=== PATIENT | female | born 1955 | race Caucasian/White ===

== ENCOUNTER 2022-03-28 20:06 | Emergency (ER) | payer MEDICARE ==
[~2022-03-28] VITALS: Ht 167.6 cm; Wt 72.7 kg
[2022-03-28 20:15] VITALS: TEMP 98.1
[2022-03-28 21:13] LABS: BASO # 0.1 K/mm3 (0.0-0.2); BASO % 0.7 % (0.0-2.0); EOS # 0.1 K/mm3 (0.0-0.7); EOS % 1.7 % (0.0-4.0); GRAN # 3.4 K/mm3 (1.4-6.5); GRAN % 49.6 % (42.2-75.2); HEMATOCRIT 43.2 % (37.0-47.0); HEMOGLOBIN 14.8 g/dl (12.5-16.0); LYMPH # 2.8 K/mm3 (1.2-3.4); LYMPH % 40.3 % (20.0-51.0); MEAN CELL VOLUME 92 fl (80.0-100.0); MEAN CORPUSCULAR HEMOGLOBIN 32 pg (27-31); MEAN CORPUSCULAR HGB CONC 34 g/dl (33.0-37.0); MEAN PLATELET VOLUME 10.3 fl (7.4-10.4); MONO # 0.5 K/mm3 (0.1-0.6); MONO % 7.6 % (1.7-9.3); PLATELET COUNT 207 K/mm3 (130-400); RED BLOOD COUNT 4.68 M/mm3 (4.10-5.30); REDCELL DISTRIBUTION WIDTH-CV 12.4 % (11.5-14.5)
[2022-03-28 21:32] LABS: BILIRUBIN,TOTAL 0.7 mg/dL (0.2-1.2); C-REACTIVE PROTEIN 0.07 mg/dL (0.00-0.50); CALCIUM 9.3 mg/dL (8.4-10.2); CREATININE, serum 1.09 mg/dL (0.57-1.11); POTASSIUM 4.1 mmol/L (3.5-4.5); TOTAL PROTEIN 8.4 gm/dL (6.2-8.1)
[2022-03-28 21:36] LABS: STREP SCREEN NEGATIVE
[2022-03-28] MEDS ORDERED: MOLNUPIRAVIR (200 MG PO (22:33)
[2022-03-28] MEDS ORDERED: NORVASC 5MG5 MG/TAB PO (22:33)
[2022-03-28 22:58] VITALS: BP 182/106; PULSE 77
== END 2022-03-28 22:58 | disposition home or self-care (01) ==
LOC: COL.ER 20:06
PROVIDERS: Emergency Medicine
DX: U07.1 COVID-19 (principal); I10 Essential (primary) hypertension; Z87.891 Personal history of nicotine dependence
CPT/HCPCS: J0360

== ENCOUNTER 2023-12-14 07:13 | Day surgery (SDC) | payer MEDICARE, MEDICAID ==
[~2023-12-14] VITALS: Ht 170.2 cm; Wt 103.2 kg
[~2023-12-14 07:13] MED LIST: BACTRIM DS 8001 TAB PO; CIPRO 500MG TA500 MG PO; FLAGYL500 MG PO; HALDOL 5MG T5 MG/TAB PO; INDERAL 20MG20 MG PO; LIPITOR 40MG TA40 MG PO; LR 1,000 ML IV SCH; MOLNUPIRAVIR (200 MG PO; NORCO 325 MG-51 TAB PO; NORVASC 5MG5 MG/TAB PO; Ondansetron 4 MG/2 ML VIAL IV PRN; PERCOCET 325 MG1 TA2 PO; PLAVIX 75MG TAB75 MG PO; PRINIVIL5 MG PO
[2023-12-14 08:09] VITALS: BP 139/98; PULSE 79; TEMP 97.4
[2023-12-14] MEDS ORDERED: Lidocaine PF 2% (20 MG/ML) 5 ML VIAL ONE (08:55)
[2023-12-14 09:15] VITALS: BP 150/94; PULSE 74
[2023-12-14 09:30] VITALS: BP 150/90; PULSE 79
--- NOTE | 2023-12-14 09:38 | NUR ---
0915 PATIENT RETURNS TO [facility] [place] [facility] VIA CART. PT AWAKE AND ALERT. RESPIRATIONS UNLABORED. AMBULATED TO RECLINER CHAIR WITH 2:1 SBA. PT DENIES NAUSEA OR ABDOMINAL PAIN. HOOKED UP TO MONITOR AND VS OBTAINED. CALL LIGHT AT SIDE AND EX PRESENT. 0925 PATIENT TOLERATING CRANBERRY JUICE AND MUFFIN, ICE CREAM, APPLESAUCE WITHOUT NAUSEA OR DIFFICULTY SWALLOWING. 0935 IN ROOM SPEAKING WITH PATIENT. 0945 D/C INSTRUCTIONS REVIEWED WITH PATIENT. PT VERBALIZED UNDERSTANDING AND A COPY OF INSTRUCTIONS PROVIDED IN D/C FOLDER. 0955 PATIENT DRESSES SELF. 1000 PATIENT DISCHARGED FROM UNIT VIA W/C TO A PERSONAL VEHICLE. PT LEFT HOSPITAL IN STABLE CONDITION.
[2023-12-14 09:45] VITALS: BP 147/91; PULSE 71
== END 2023-12-14 10:00 | disposition home or self-care (01) ==
LOC: SDCO 07:13
DX: K22.2 Esophageal obstruction (principal); K44.9 Diaphragmatic hernia without obstruction or gangrene; K29.80 Duodenitis without bleeding; K26.9 Duodenal ulcer, unspecified as acute or chronic, without hemorrhage or perforation; Z80.0 Family history of malignant neoplasm of digestive organs; Z86.73 Personal history of transient ischemic attack (TIA), and cerebral infarction without residual deficits; Z79.02 Long term (current) use of antithrombotics/antiplatelets; Z85.528 Personal history of other malignant neoplasm of kidney; Z87.891 Personal history of nicotine dependence; Z77.22 Contact with and (suspected) exposure to environmental tobacco smoke (acute) (chronic)
CPT/HCPCS: J2704; J7120

== ENCOUNTER 2024-02-22 08:27 | Day surgery (SDC) | payer MEDICARE, MEDICAID ==
[~2024-02-22] VITALS: Ht 167.6 cm; Wt 104.7 kg
[~2024-02-22 08:27] MED LIST changes: -Ondansetron 4 MG/2 ML VIAL IV PRN
[2024-02-22 09:19] VITALS: BP 141/96; PULSE 77; TEMP 98.2
--- NOTE | 2024-02-22 09:26 | NUR ---
Patient admitted to [facility] [place]. Admission assessments complete. 20G IV inserted into right hand on second attempt. LR infusing without difficulty. Medications, allergies, and pharmacy confirmed. Pt wearing bracelet on left wrist- will not come off. Pts reports last dose of plavix on 02/14/24. Consent signed. Denies complaints. Cart in low position. Call light within reach.
[2024-02-22] MEDS ORDERED: Lidocaine PF 2% (20 MG/ML) 5 ML VIAL ONE (10:57)
[2024-02-22] MEDS ORDERED: fentaNYL 50 MCG/ML 2 ML VIAL ONE (10:57)
[2024-02-22] MEDS ORDERED: Topical Skin Adhesive 1 EACH (1 ML) TOP ONE (11:48)
--- NOTE | 2024-02-22 11:52 | NUR ---
VERBAL REPORT FROM SYLWIA Rueda CRNA
[2024-02-22 12:00] VITALS: BP 130/90; PULSE 78; TEMP 97.3
--- NOTE | 2024-02-22 12:00 | NUR ---
PATIENT RETURNED TO B[facility] 5 VIA CART, ALERT AND ORIENTED X3. DENIES PAIN, NAUSEA AND SHORTNESS OF BREATH. BREATHING REGULAR AND UNLABORED ON ROOM AIR. SKIN WARM AND DRY. NURSE HANDOFF COMPLETED IN ROOM (BY OR NURSE) WITH INSPECTION OF SURGICAL SITE. VISIBLE INCISION TO RIGHT LOWER BACK WITH SKIN GLUE CLEAN, DRY AND INTACT. NO DRAINAGE. SURROUNDING SKIN CLEAN, DRY AND INTACT. PATIENT HAS NO COMPLAINTS AND HAD A MUFFIN WITH SPRITE TO DRINK. NO DYSPHAGIA. SEE CHART FOR VITAL SIGNS. CALL LIGHT IN REACH. 1209: SYLWIA Rueda CRNA PRESENT IN ROOM.
[2024-02-22 12:15] VITALS: BP 147/88; PULSE 71
[2024-02-22] MEDS ORDERED: Acetaminophen 325 MG TAB PO PRN (12:15)
[2024-02-22] MEDS ORDERED: Morphine 4 MG/ML VIAL IV PRN (12:15)
[2024-02-22] MEDS ORDERED: hydrALAZINE 20 MG/ML 1 ML VIAL IV PRN (12:15)
[2024-02-22] MEDS ORDERED: fentaNYL 50 MCG/ML 1 ML SYRINGE/VIAL [PACU/SDC ONLY] IV PRN (12:15)
[2024-02-22] MEDS ORDERED: Ondansetron 4 MG/2 ML VIAL IV PRN ×2 (12:15)
[2024-02-22 12:24] VITALS: BP 152/87; PULSE 76
--- NOTE | 2024-02-22 12:31 | NUR ---
1225: PATIENT DENIES PAIN, NAUSEA AND SHORTNESS OF BREATH. RIGHT BACK INCISION CLEAN, DRY AND INTACT. PATIENT STATED SHE WAS READY TO "GO HOME". RIGHT HAND IV REMOVED. GAUZE AND COBAN PLACED OVER SITE. 1226: DISCHARGE TEACHING COMPLETED WITH PRINTED EDUCATION AND INSTRUCTIONS SENT HOME WITH PATIENT. FOLLOW UP APPOINTMENT DATE, TIME AND LOCATION COMMUNICATED TO PATIENT. PATIENT VERBALIZED UNDERSTANDING. 1231: PATIENT CHANGED INTO PERSONAL CLOTHING AND DISCHARGED HOME WITH [employer].
== END 2024-02-22 12:31 | disposition home or self-care (01) ==
LOC: SDCO 08:27
DX: D17.1 Benign lipomatous neoplasm of skin and subcutaneous tissue of trunk (principal); Z87.891 Personal history of nicotine dependence; Z86.73 Personal history of transient ischemic attack (TIA), and cerebral infarction without residual deficits; Z85.528 Personal history of other malignant neoplasm of kidney; Z79.01 Long term (current) use of anticoagulants; Z90.5 Acquired absence of kidney
CPT/HCPCS: J0690; J2704; J3010; J7120